=== PATIENT | male | born 1975 | race Caucasian/White ===

== ENCOUNTER 2020-12-30 08:02 | Outpatient (CLI) | payer BC, SELFPAY ==
--- NOTE | 2020-12-30 08:12 | XR_ITS ---
WS: [id number] XR shoulder RT min 2V* [id number] REASON FOR EXAM: SHOULDER PAIN RIGHT FINDINGS: Arthropathy in the right acromioclavicular joint with subchondral sclerosis and mild narrowing of the joint space. Normal configuration of the acromial process. Glenohumeral joint space is intact and well preserved. No focal bony abnormality in the glenoid or hu meral head. No soft tissue abnormality. XR/XR shoulder RT min 2V* [id number] IMPRESSION: Mild osteoarthropathy in the right acromioclavicular joint as above.
== END 2020-12-30 08:03 | disposition home or self-care (01) ==
PROVIDERS: PCP Electrodiagnostic Medicine; Visit Provider Electrodiagnostic Medicine
DX: M75.41 Impingement syndrome of right shoulder (principal); M89.411 Other hypertrophic osteoarthropathy, right shoulder
CPT/HCPCS: 73030